=== PATIENT | male | born 1930 ===

== ENCOUNTER 2018-10-04 14:12 | Inpatient (IN) ==
[2018-10-04] MEDS ORDERED: Naloxone 0.4 MG/ML INJ IVP PRN (18:33)
[2018-10-04 19:27] LABS: Basophils % 0.1 %; Eosinophils % 0.2 %; Hematocrit 30.5 % (37.5-50.1); Hemoglobin 8.6 g/dL (12.9-16.9); Immature Granulocytes % 0.9 % (0-4); Lymphocytes # 1.3 K/mcL (0.6-4.6); Lymphocytes % 7.4 %; Mean Corpuscular HGB Conc 28.2 g/dL (31.6-35.5); Mean Corpuscular Hemoglobin 23.6 pg (28.0-33.3); Mean Corpuscular Volume 83.8 fL (83.0-100.0); Mean Platelet Volume 12.3 fL (9.4-12.4); Monocytes # 1.7 K/mcL (0.0-1.3); Monocytes % 9.9 %; Nucleated Red Blood Cells 1.5 /100 WBC (0); Platelet Count 108 K/mcL (140-400); Red Blood Count 3.64 M/mcL (4.19-5.50); Red Cell Distribution Width 18.3 % (11.5-14.5); Segmented Neutrophils % 81.5 %; White Blood Count 17.2 K/mcL (4.3-11.1)
[2018-10-04 19:39] LABS: INR 3.6; Prothrombin Time 40.9 Seconds (9.4-12.1)
[2018-10-04 19:41] LABS: Hypochromasia Present (Not Present); Polychromasia 1+ (Not Present)
[2018-10-04 19:46] LABS: Alanine Aminotransferase 107 Units/L (7-52); Albumin 3.3 g/dL (3.5-5.7); Albumin/Globulin Ratio 1.7 (1.1-2.2); Alkaline Phosphatase 80 Units/L (34-104); Aspartate Amino Transferase 62 Units/L (13-39); BUN/Creatinine Ratio 20 (6-26); Bilirubin,Total 3.4 mg/dL (0.3-1.0); Blood Urea Nitrogen 17 mg/dL (8-23); Calcium 8.4 mg/dL (8.6-10.3); Carbon Dioxide 31 mEq/L (23-29); Chloride 99 mEq/L (98-107); Globulin 1.9 g/dL (2.4-3.5); Glucose 107 mg/dL (70-105); Osmolality,Calculated 292 (280-300); Potassium 3.8 mEq/L (3.5-5.1); Sodium 140 mEq/L (136-145); Total Protein 5.2 g/dL (6.4-8.9); eGFR For African Americans > 60 (> 60); eGFR For Non-African Americans > 60 (> 60)
--- NOTE | 2018-10-05 01:10 | AcuteCare Surgery Consult Note ---
Date of Encounter: 10/05/18 Time of Encounter: 01:07 Assessment and Plan (1) Melena Current Visit: Yes Status: Acute 87M with melena; h/h decreased from last value back in 2018; INR @ 3.9 diet as toleraed reverse INR can begin bowel prep and planning for colonoscopy once INR wnl; will continue to follow History of Present Illness Consult date: 10/05/18 Reason for consult: other (melena) History of present illness: 87M, PMH of HTN, s/p defibrillator poor historian (most of history from the primary team) currently on anticoagulation with INR at 3.9 (reportedly down from 6) with one day history of dark tarry stools. No reports of dizziness, lightheadedness, chest pain nor shortness of breath. The patient has had numerous bleeding episodes over the last 12 years and has 4 colonoscopies over that time. Reports of polyps, but no reports of malignancy. General surgery was consulted for management recommendations Past Med Surg Social Fam HX - Past Medical History Medical history: non-contributory, hypertension, thyroid disease Psychiatric history: no psych history - Social History Smoking Status: Former smoker Smokeless Tobacco Status: No Alcohol use: none Drug use: none - Additional Family History Additional family history: non contributory Medications and Allergies Allergy/AdvReac Type Severity Reaction Status Date / Time No Known Allergies Allergy Verified 05/26/17 11:38 Review of Systems All systems PM: 12 point ROS negative besides HPI findings General Surgery Exam Initial Vital Signs Temp Pulse Resp BP Pulse Ox 97.9 F 99 20 154/81 93 10/04/18 19:33 10/04/18 19:33 10/04/18 19:33 10/04/18 19:33 10/04/18 19:33 - General physical appearance no distress - Eyes PERRL, normal ocular movement - Respiratory normal expansion, normal respiratory effort - Cardiovascular Cardiovascular exam: Present: RRR - Abdomen Abdomen general surgery: Present: soft, non tender - Integumentary Integumentary general surgery: Present: warm and dry, no abnormal pigmentation - Neurologic Present: CN 2-12 grossly intact - Musculoskeletal Present: normal posture - Psychiatric Psychiatric general surgery: Present: appropriate, speech is normal Exam Initial Vital Signs Temp Pulse Resp BP Pulse Ox 97.9 F 99 20 154/81 93 10/04/18 19:33 10/04/18 19:33 10/04/18 19:33 10/04/18 19:33 10/04/18 19:33 Results - Labs 10/04/18 19:04 10/04/18 19:04 Abnormal lab results WBC 17.2 K/mcL (4.3-11.1) H 10/04/18 19:04 RBC 3.64 M/mcL (4.19-5.50) L 10/04/18 19:04 Hgb 8.6 g/dL (12.9-16.9) L 10/04/18 19:04 Hct 30.5 % (37.5-50.1) L 10/04/18 19:04 MCH 23.6 pg (28.0-33.3) L 10/04/18 19:04 MCHC 28.2 g/dL (31.6-35.5) L 10/04/18 19:04 RDW 18.3 % (11.5-14.5) H 10/04/18 19:04 Plt Count 108 K/mcL (140-400) L 10/04/18 19:04 Neutrophils # 14.0 K/mcL (1.6-8.9) H 10/04/18 19:04 Monocytes # 1.7 K/mcL (0.0-1.3) H 10/04/18 19:04 Nucleated RBCs/100 WBC 1.5 /100 WBC (0) H 10/04/18 19:04 Polychromasia 1+ (Not Present) A 10/04/18 19:04 Hypochromasia Present (Not Present) A 10/04/18 19:04 PT 40.9 Seconds (9.4-12.1) H 10/04/18 19:04 Carbon Dioxide 31 mEq/L (23-29) H 10/04/18 19:04 Glucose 107 mg/dL (70-105) H 10/04/18 19:04 Calcium 8.4 mg/dL (8.6-10.3) L 10/04/18 19:04 Total Bilirubin 3.4 mg/dL (0.3-1.0) H 10/04/18 19:04 AST 62 Units/L (13-39) H 10/04/18 19:04 ALT 107 Units/L (7-52) H 10/04/18 19:04 Serum Total Protein 5.2 g/dL (6.4-8.9) L 10/04/18 19:04 Albumin 3.3 g/dL (3.5-5.7) L 10/04/18 19:04 Globulin 1.9 g/dL (2.4-3.5) L 10/04/18 19:04 Diabetes panel 10/04/18 Range/Units 19:04 Sodium 140 (136-145) mEq/L Potassium 3.8 (3.5-5.1) mEq/L Chloride 99 (98-107) mEq/L Carbon Dioxide 31 H (23-29) mEq/L BUN 17 (8-23) mg/dL Creatinine 0.84 (0.70-1.30) mg/dL Glucose 107 H (70-105) mg/dL Calcium 8.4 L (8.6-10.3) mg/dL AST 62 H (13-39) Units/L ALT 107 H (7-52) Units/L Alkaline Phosphatase 80 (34-104) Units/L Albumin 3.3 L (3.5-5.7) g/dL Calcium panel 10/04/18 Range/Units 19:04 Calcium 8.4 L (8.6-10.3) mg/dL Albumin 3.3 L (3.5-5.7) g/dL Pituitary panel 10/04/18 Range/Units 19:04 Sodium 140 (136-145) mEq/L Potassium 3.8 (3.5-5.1) mEq/L Chloride 99 (98-107) mEq/L Carbon Dioxide 31 H (23-29) mEq/L BUN 17 (8-23) mg/dL Creatinine 0.84 (0.70-1.30) mg/dL Glucose 107 H (70-105) mg/dL Calcium 8.4 L (8.6-10.3) mg/dL Adrenal panel 10/04/18 Range/Units 19:04 Sodium 140 (136-145) mEq/L Potassium 3.8 (3.5-5.1) mEq/L Chloride 99 (98-107) mEq/L Carbon Dioxide 31 H (23-29) mEq/L BUN 17 (8-23) mg/dL Creatinine 0.84 (0.70-1.30) mg/dL Glucose 107 H (70-105) mg/dL Calcium 8.4 L (8.6-10.3) mg/dL Total Bilirubin 3.4 H (0.3-1.0) mg/dL AST 62 H (13-39) Units/L ALT 107 H (7-52) Units/L Alkaline Phosphatase 80 (34-104) Units/L Albumin 3.3 L (3.5-5.7) g/dL All other labs normal. Consult Discharge Plan - Plan Referrals: Jyoti Greenfield CNP [Primary Care Provider] -
[2018-10-05] MEDS ORDERED: Ondansetron 4 MG/2 ML VIAL IVP PRN (01:34)
[2018-10-05] MEDS ORDERED: traMADol 50 MG TABLET PO PRN (01:34)
[2018-10-05] MEDS ORDERED: Acetaminophen 325 MG TABLET PO PRN (01:34)
--- NOTE | 2018-10-05 02:39 | Internal Med History&Physical ---
Date of Encounter: 10/05/18 Time of Encounter: 00:45 Internal Medicine - H&P: HPI Chief complaint: Melena Admitted From: Hospital to Hospital Transfer Plans for Post Hospital Care: Home History of present illness: Mr. Hummel is a 87 year old male w/PMH of HTN, thyroid disease, atrial fibrillation on Xarelto, CHF, Pacemaker/AICD, and depression presents from [facility] w/CC of melena for the past several days. Pt. states that he has had black stools intermittently but no jyoti bleeding. Pts. Hgb on admiss ion 8.6. F/u Hgb at 02:08 was 8.0. Patient's current INR 3.6. Patient has 12 year hx of GI bleeding episodes and has 4 colonoscopies in as many years. Previous colonoscopies showed presence of polyps but no malignancy. No aggravating or alleviating factors. Patient reports weakness, SOB w/exertion, and falls but denies recent illness, fever, chills, nausea, vomiting, headache, changes in vision, chest pain, abdominal pain, dizziness, lightheadedness, diarrhea, constipation, numbness, tingling, pre-syncope, or syncope. Past Med Surg Social Fam HX - Past Medical History Source: patient, old records reviewed, obtained from family Medical history: atrial fibrillation, CHF, GI bleed, hypertension, thyroid disease Psychiatric history: depression - Past Surgical History Surgical History: pacemaker/AICD - Social History Smoking Status: Former smoker Smokeless Tobacco Status: No Alcohol use: none Drug use: none Current living situation: Home, With Family Activity Level: Independent ambulation Recent Out of Country Travel Within the Last 8 Weeks: No Exposure or Possible Exposure to Illness During Travel: No - Family History Father Race: Family Member Ethnicity: Non- Living Status: Age at : 80 Cause of : Alcoholism Hx Family Psychosocial Disorders: Yes (Alcoholism) Mother Race: Family Member Ethnicity: Non- Living Status: Age at : 75 Cause of : Alzheimer's Hx Family Cancer: Yes (Colon) Hx Family Neurologic Disorders: Yes (Alzheimer's) Brother Race: Family Member Ethnicity: Non- Living Status: Age at : 40 Cause of : Alcoholism Hx Family Psychosocial Disorders: Yes (Alcoholism) Sister Race: Family Member Ethnicity: Non- Living Status: Age at : 84 Cause of : Alzheimer's Hx Family Neurologic Disorders: Yes (Alzheimer's) Internal Medicine - H&P: Meds Citalopram Hydrobromide [Citalopram HBr] 40 mg PO DAILY 10/05/18 [History] Furosemide [Lasix] 20 mg PO BID 10/05/18 [History] Levothyroxine [Synthroid] 125 mcg PO DAILY 10/05/18 [History] Lisinopril [Zestril] 10 mg PO DAILY 10/05/18 [History] Loperamide HCl [Anti-Diarrheal] 1 tab PO Q6HR PRN 10/05/18 [History] Metoprolol Succinate [Toprol Xl] 75 mg PO DAILY 10/05/18 [History] Potassium Chloride [K-Tab ER] 20 meq PO DAILY 10/05/18 [History] Rivaroxaban [Xarelto] 20 mg PO DAILY 10/05/18 [History] Tamsulosin HCl [Flomax] 0.4 mg PO DAILY 10/05/18 [History] hydrOXYzine HCl [Hydroxyzine HCl] 50 mg PO DAILY 10/05/18 [History] Allergy/AdvReac Type Severity Reaction Status Date / Time No Known Allergies Allergy Verified 05/26/17 11:38 All Systems PM: A 10-system review of systems was performed and is negative for pertinent findin gs except as documented above in the HPI. - Constitutional Constitutional: as per HPI, fatigue, weakness, no chills, no fever(s), no night sweats - EENT Eyes: no change in vision, no discharge, no pain, no photophobia Ears: no ear discharge, no ear pain, no tinnitus Nose, mouth and throat: no dysphagia, no nasal discharge, no neck pain, no sore throat - Breasts Breasts: as per HPI - Cardiovascular Cardiovascular ROS IM: as per HPI, dyspnea on exertion, no chest pain, no diaphoresis, no dyspnea, no lightheadedness, no palpitations, no syncope - Respiratory Respiratory: as per HPI, dyspnea on exertion, no cough, no dyspnea, no wheezing, no excessive phlegm production - Gastrointestinal Gastrointestinal: as per HPI, melena, no abdominal pain, no diarrhea, no hematemesis, no hematochezia, no nausea, no vomiting - Genitourinary Genitourinary ROS male: as per HPI, urinary hesitancy - Musculoskeletal Musculoskeletal ROS IM: no numbness, no tingling - Integumentary Integumentary IM: no rash, no unusual bruising - Neurological Neurological ROS: as per HPI, weakness, no confusion, no convulsions, no focal weakness, no numbness, no tingling, no tremor(s) - Psychiatric Psychiatric: as per HPI, depression - Endocrine Endocrine IM: as per HPI - Hematologic/Lymphatic Hematologic/Lymphatic: no easy bruising - Allergic/Immunologic Allergic/Immunologic: as per HPI - Constitutional Vitals: Temp Pulse Resp BP Pulse Ox 98 F 99 20 109/63 95 10/04/18 23:52 10/04/18 23:52 10/04/18 23:52 10/04/18 23:52 10/04/18 23:52 General appearance: Present: cooperative, A&O X 3, pleasant, no acute distress, obese, answers questions appropriately Exam: Patient examined at bedside. Patient reports intermittent melena over the past several days but denies jyoti blood presence. Pt. denies any other sx or complaints on exam. VS: 98.0F temp, HR 99, RR 20, BP 109/63, SPO2 95% on 2 L via nasal cannula. - Head Head exam: Present: atraumatic, normocephalic - Eye Eye exam: Present: PERRL, conjuntiva pink, sclera anicteric Pupils: Present: PERRL - ENT ENT exam: Present: normal exam - Neck Neck exam general surgery: Present: normal inspection, supple, trachea midline. Absent: lymphadenopathy - Respiratory Respiratory exam: Present: CTAB. Absent: accessory muscle use, rales, rhonchi, wheezes - Cardiovascular Cardiovascular exam: Present: irregular rhythm (Afib w/RVR) - GI/Abdominal GI/Abdominal exam: Present: normal bowel sounds, soft, no peritoneal signs. Absent: distended, tenderness - Rectal Rectal exam: Present: deferred - Additional comments: exam deferred. - Extremities Exam Extremities exam: Present: pedal edema, warm, radial pulses palpable and symmetr ical. Absent: calf tenderness, cyanotic - Back Exam Back exam: Present: normal inspection - Neurological Exam Neurological exam: Present: alert, CN II-XII intact, oriented X3, no focal deficits. Absent: pronater drift, facial droop, speech deficit - Psychiatric Psychiatric exam: Present: normal affect, normal mood - Skin Skin exam: Present: dry, intact Internal Med - H&P Results - Labs CBC & Chem 7: 10/05/18 02:08 10/05/18 02:08 Labs: Short CBC 10/04/18 Range/Units 19:04 WBC 17.2 H (4.3-11.1) K/mcL Hgb 8.6 L (12.9-16.9) g/dL Hct 30.5 L (37.5-50.1) % Plt Count 108 L (140-400) K/mcL Neutrophils # 14.0 H (1.6-8.9) K/mcL BMP 10/04/18 19:04 Sodium 140 Potassium 3.8 Chloride 99 Carbon Dioxide 31 H BUN 17 Creatinine 0.84 Glucose 107 H Calcium 8.4 L Liver Function 10/04/18 Range/Units 19:04 Total Bilirubin 3.4 H (0.3-1.0) mg/dL AST 62 H (13-39) Units/L ALT 107 H (7-52) Units/L Alkaline Phosphatase 80 (34-104) Units/L Albumin 3.3 L (3.5-5.7) g/dL - EKG Data Prior EKG available for review: no EKG comments: 10/05/18 04:22 EKG dated 10/05/18 shows atrial fibrillation with rapid ventricular response and minimal ST depression. Abnormal QRST angle. - Assessment and Plan (1) Melena Current Visit: Yes Status: Acute Assessment and plan: Acute on chronic melena for the past several days. Pt. states that he has had black stools intermittently but no jyoti bleeding. Pts. Hgb on admission 8.6. F/u Hgb at 02:08 was 8.0. Patient's current INR 3.6. Patient has 12 year hx of GI bleeding episodes and has 4 colonoscopies in as many years. Previous colonoscopies showed presence of polyps but no malignancy. Hgb 8.6 then 8.0 on admission. Patient typed and screened with results showing O+ with negative antibody screen. H/Hs Q4HR ordered. Will transfuse as necessary if Hgb continues to drop. IVP Protonix 40 mg BID ordered. Surgery consulted and pt. was discussed w/Dr. Roblero who plans on colonoscopy when INR is therapeutic. One unit of FFP ordered d/t INR being 3.6 (therapeutic range is 2.0 to 3.5 on antico agulation). As always, I appreciate the consult and recommendations. Patient is high risk for further morbidity and complications d/t current GI bleeding of unknown source, hx of GI bleeds, current drops in Hgb, hx of atrial fibrillation on anticoagulation, and risk factors. Observation. (2) Leukocytosis Current Visit: Yes Status: Acute Assessment and plan: Acute leukocytosis w/WBC of 17.2, then 16.3 on admission. No identifiable infection source and pt. denies recent illness, fever, chills, or other sx. Possibly reactive. Monitor f/u labs and pt. for signs of infection. Qualifiers: Leukocytosis type: unspecified Qualified Code(s): D72.829 - Elevated white blood cell count, unspecified (3) Elevated liver enzymes Current Visit: Yes Status: Acute Assessment and plan: Acutely elevated liver enzymes. AST 62 on admission. ALT 107. Will avoid acetaminophen products and monitor f/u labs. (4) Hypocalcemia Current Visit: Yes Status: Acute Assessment and plan: Acute hypocalcemia w/calcium level of 8.1. PO calcium carbonate ordered. Monitor f/u labs. Cardiac monitoring. (5) CHF (congestive heart failure) Current Visit: Yes Status: Chronic Assessment and plan: Hx of chronic CHF. No recent cardiac w/u. Echocardiogram ordered. Bilateral pedal edema on admission. Continuous cardiac telemetry. Supplemental O2 w/titration and SpO2 monitoring. Continue pts. PO lasix. Monitor I&O. Monitor fluid intake closely. Qualifiers: Heart failure type: unspecified Heart failure chronicity: chronic Qualified Code(s): I50.9 - Heart failure, unspecified (6) Atrial fibrillation Current Visit: Yes Status: Chronic Assessment and plan: Hx of chronic Atrial fibrillation on Xarelto. Recommendation from Pharmacy is to be off Xarelto for 24 hours prior to procedure. Pt. reports he last took his Xarelto on . EKG on admission showed Afib w/RVR w/HR of 102. D/t pts. hypotension, 2.5 mg IVP Metoprolol given. HR bouncing 80s to low 100s. Continuous cardiac telemetry. Echocardiogram ordered. Qualifiers: Atrial fibrillation type: chronic Qualified Code(s): I48.2 - Chronic atrial fibrillation (7) HTN (hypertension) Current Visit: Yes Status: Chronic Assessment and plan: Hx of chronic HTN. Monitor pt. and VS. Pt. currently hypotensive. Will continue pts. lisinopril and Toprol-XL when no longer hypotensive. Qualifiers: Hypertension type: essential hypertension Qualified Code(s): I10 - Essential (primary) hypertension (8) Thyroid disease Current Visit: Yes Status: Chronic Assessment and plan: Hx of chronic thyroid disease. TSH 0.111 on admission. Continue pts. Synthroid. Cardiac monitoring. (9) DVT prophylaxis Current Visit: Yes Status: Acute Assessment and plan: Bilateral SCDs on LEs for DVT prophylaxis d/t current melena and drop in Hgb. - Time Spent With Patient Total time spent is greater than 50% in coordination of care (as documented) at patient's floor/unit and/or counseling patient: Greater than 35 minutes
[2018-10-05 02:41] LABS: Basophils % 0.1 %; Eosinophils % 0.4 %; Red Cell Distribution Width 18.1 % (11.5-14.5); White Blood Count 16.3 K/mcL (4.3-11.1)
[2018-10-05 02:43] LABS: Eosinophils # 0.1 K/mcL (0.0-0.6); Hematocrit 28.5 % (37.5-50.1); Lymphocytes # 1.2 K/mcL (0.6-4.6); Lymphocytes % 7.4 %; Mean Corpuscular HGB Conc 28.1 g/dL (31.6-35.5); Mean Corpuscular Hemoglobin 23.5 pg (28.0-33.3); Mean Corpuscular Volume 83.6 fL (83.0-100.0); Mean Platelet Volume 11.5 fL (9.4-12.4); Monocytes # 1.8 K/mcL (0.0-1.3); Neutrophils # 13.1 K/mcL (1.6-8.9); Nucleated Red Blood Cells 1.5 /100 WBC (0); Red Blood Count 3.41 M/mcL (4.19-5.50); Segmented Neutrophils % 80.1 %
[2018-10-05 02:46] LABS: Platelet Count 87 K/mcL (140-400)
[2018-10-05 02:59] LABS: Chol/HDL Ratio 3.2 (0-4.9); Magnesium 2.2 mg/dL (1.6-2.6)
[2018-10-05 03:00] LABS: % Iron Saturation 39 % (20-55); Alanine Aminotransferase 90 Units/L (7-52); Albumin 3.1 g/dL (3.5-5.7); Albumin/Globulin Ratio 1.9 (1.1-2.2); Alkaline Phosphatase 70 Units/L (34-104); Aspartate Amino Transferase 47 Units/L (13-39); BUN/Creatinine Ratio 22 (6-26); Bilirubin,Total 3.3 mg/dL (0.3-1.0); Blood Urea Nitrogen 17 mg/dL (8-23); Calcium 8.1 mg/dL (8.6-10.3); Carbon Dioxide 29 mEq/L (23-29); Chloride 103 mEq/L (98-107); Globulin 1.6 g/dL (2.4-3.5); Glucose 87 mg/dL (70-105); Iron 149 mcg/dL (65-175); Osmolality,Calculated 291 (280-300); Potassium 3.7 mEq/L (3.5-5.1); Sodium 140 mEq/L (136-145); Total Protein 4.7 g/dL (6.4-8.9); Transferrin 275 mg/dL (203-362); eGFR For African Americans > 60 (> 60); eGFR For Non-African Americans > 60 (> 60)
[2018-10-05] MEDS ORDERED: *HR* Metoprolol 5 MG/5 ML VIAL IVP ONE (03:08)
[2018-10-05 03:15] LABS: Thyroid Stimulating Hormone 0.111 mcIU/mL (0.340-5.600)
[2018-10-05 03:57] LABS: Hypochromasia Present (Not Present); Platelet Estimate Slight Decrease (Normal); Polychromasia 1+ (Not Present)
[2018-10-05] MEDS ORDERED: 0.9 % Sodium Chloride 500 ML ONE (04:13)
[2018-10-05] MEDS: Pantoprazole 40 MG VIAL IVP SCH ×2 (06:34→16:46)
[2018-10-05] MEDS ORDERED: hydrOXYzine pamoate 25 MG CAPSULE PO SCH (09:00)
[2018-10-05] MEDS ORDERED: Furosemide 20 MG TABLET PO SCH (09:00)
--- NOTE | 2018-10-05 09:21 | AcuteCareSurgery Progress Note ---
<Radha Scruggs Dave - Last Filed: 10/05/18 09:19> Date of Encounter: 10/05/18 Time of Encounter: 07:30 - Assessment and Plan (1) Melena Current Visit: Yes Status: Acute Noted he has been transfused one unit PRBC per primary team. Hgb 8.0 today. Coags remain pending for today. If adequately reversed and INR is stable, will begin bowel prep and plans for EGD and c-scope the following day Subjective Patient reports: no new complaints, voiding w/o difficulty, bowel movement, blood in stool, other (feels dizzy) Objective Vital Signs - Last 8 Hours Temp Pulse Resp BP Pulse Ox 10/05/18 08:04 98.1 F 120 16 125/77 91 10/05/18 06:52 97.9 F 108 16 125/75 10/05/18 04:53 97.9 F 83 18 108/64 10/05/18 04:38 98.1 F 86 16 124/65 97 10/05/18 04:17 98.1 F 86 17 124/65 96 Intake and Output 10/04/18 10/05/18 10/05/18 23:59 07:59 15:59 Intake Total 0 / 0 250 / 250 Balance 0 / 0 250 / 250 Intake: Oral 0 / 0 Blood Product 250 / 250 Plasma Unit [id number] 250 / 250 Other: Weight 89.2 kg Blood Glucose* 97 - General physical appearance no distress, other (pale; ensteady on feet) - ENT atraumatic, normocephalic - Neck Neck exam: trachea midline - Cardiovascular Cardiovascular exam: Present: RRR - Abdomen Abdomen: Present: bowel sounds present, soft, non tender - Integumentary other (pale) - Musculoskeletal other (unsteady) - Psychiatric oriented to time, oriented to person, oriented to place - Labs 10/05/18 02:08 10/05/18 02:08 Diabetes panel 10/04/18 10/05/18 10/05/18 Range/Units 19:04 02:08 02:08 Sodium 140 140 (136-145) mEq/L Potassium 3.8 3.7 (3.5-5.1) mEq/L Chloride 99 103 (98-107) mEq/L Carbon Dioxide 31 H 29 (23-29) mEq/L BUN 17 17 (8-23) mg/dL Creatinine 0.84 0.78 (0.70-1.30) mg/dL Glucose 107 H 87 (70-105) mg/dL Calcium 8.4 L 8.1 L (8.6-10.3) mg/dL AST 62 H 47 H (13-39) Units/L ALT 107 H 90 H (7-52) Units/L Alkaline Phosphatase 80 70 (34-104) Units/L Albumin 3.3 L 3.1 L (3.5-5.7) g/dL Triglycerides 57 (< 150) mg/dL HDL Cholesterol 15 L (40-59) mg/dL Thyroid panel 10/05/18 Range/Units 02:08 TSH 0.111 L (0.340-5.600) mcIU/mL Calcium panel 10/04/18 10/05/18 Range/Units 19:04 02:08 Calcium 8.4 L 8.1 L (8.6-10.3) mg/dL Albumin 3.3 L 3.1 L (3.5-5.7) g/dL Pituitary panel 10/04/18 10/05/18 10/05/18 Range/Units 19:04 02:08 02:08 Sodium 140 140 (136-145) mEq/L Potassium 3.8 3.7 (3.5-5.1) mEq/L Chloride 99 103 (98-107) mEq/L Carbon Dioxide 31 H 29 (23-29) mEq/L BUN 17 17 (8-23) mg/dL Creatinine 0.84 0.78 (0.70-1.30) mg/dL Glucose 107 H 87 (70-105) mg/dL Calcium 8.4 L 8.1 L (8.6-10.3) mg/dL TSH 0.111 L (0.340-5.600) mcIU/mL Adrenal panel 10/04/18 10/05/18 Range/Units 19:04 02:08 Sodium 140 140 (136-145) mEq/L Potassium 3.8 3.7 (3.5-5.1) mEq/L Chloride 99 103 (98-107) mEq/L Carbon Dioxide 31 H 29 (23-29) mEq/L BUN 17 17 (8-23) mg/dL Creatinine 0.84 0.78 (0.70-1.30) mg/dL Glucose 107 H 87 (70-105) mg/dL Calcium 8.4 L 8.1 L (8.6-10.3) mg/dL Total Bilirubin 3.4 H 3.3 H (0.3-1.0) mg/dL AST 62 H 47 H (13-39) Units/L ALT 107 H 90 H (7-52) Units/L Alkaline Phosphatase 80 70 (34-104) Units/L Albumin 3.3 L 3.1 L (3.5-5.7) g/dL Consult Discharge Plan - Plan Referrals: Jyoti Greenfield, GRAPHICS SPECIALIST [Primary Care Provider] - <BlasAmado T - Last Filed: 10/05/18 12:43> Date of Encounter: 10/05/18 Subjective Narrative: The patient is seen and evaluated on morning rounds with the acute care surgery team. Objective Vital Signs - Last 8 Hours Temp Pulse Resp BP Pulse Ox 10/05/18 12:18 98.5 F 89 20 124/75 97 10/05/18 08:04 98.1 F 120 16 125/77 91 10/05/18 06:52 97.9 F 108 16 125/75 10/05/18 04:53 97.9 F 83 18 108/64 Intake and Output 10/04/18 10/05/18 10/05/18 23:59 07:59 15:59 Intake Total 0 / 0 250 / 250 Balance 0 / 0 250 / 250 Intake: Oral 0 / 0 Blood Product 250 / 250 Plasma Unit [id number] 250 / 250 Other: Weight 89.2 kg Blood Glucose* 97 108 - Labs 10/05/18 10:54 10/05/18 02:08 Diabetes panel 10/04/18 10/05/18 10/05/18 Range/Units 19:04 02:08 02:08 Sodium 140 140 (136-145) mEq/L Potassium 3.8 3.7 (3.5-5.1) mEq/L Chloride 99 103 (98-107) mEq/L Carbon Dioxide 31 H 29 (23-29) mEq/L BUN 17 17 (8-23) mg/dL Creatinine 0.84 0.78 (0.70-1.30) mg/dL Glucose 107 H 87 (70-105) mg/dL Calcium 8.4 L 8.1 L (8.6-10.3) mg/dL AST 62 H 47 H (13-39) Units/L ALT 107 H 90 H (7-52) Units/L Alkaline Phosphatase 80 70 (34-104) Units/L Albumin 3.3 L 3.1 L (3.5-5.7) g/dL Triglycerides 57 (< 150) mg/dL HDL Cholesterol 15 L (40-59) mg/dL Thyroid panel 10/05/18 Range/Units 02:08 TSH 0.111 L (0.340-5.600) mcIU/mL Calcium panel 10/04/18 10/05/18 Range/Units 19:04 02:08 Calcium 8.4 L 8.1 L (8.6-10.3) mg/dL Albumin 3.3 L 3.1 L (3.5-5.7) g/dL Pituitary panel 10/04/18 10/05/18 10/05/18 Range/Units 19:04 02:08 02:08 Sodium 140 140 (136-145) mEq/L Potassium 3.8 3.7 (3.5-5.1) mEq/L Chloride 99 103 (98-107) mEq/L Carbon Dioxide 31 H 29 (23-29) mEq/L BUN 17 17 (8-23) mg/dL Creatinine 0.84 0.78 (0.70-1.30) mg/dL Glucose 107 H 87 (70-105) mg/dL Calcium 8.4 L 8.1 L (8.6-10.3) mg/dL TSH 0.111 L (0.340-5.600) mcIU/mL Adrenal panel 10/04/18 10/05/18 Range/Units 19:04 02:08 Sodium 140 140 (136-145) mEq/L Potassium 3.8 3.7 (3.5-5.1) mEq/L Chloride 99 103 (98-107) mEq/L Carbon Dioxide 31 H 29 (23-29) mEq/L BUN 17 17 (8-23) mg/dL Creatinine 0.84 0.78 (0.70-1.30) mg/dL Glucose 107 H 87 (70-105) mg/dL Calcium 8.4 L 8.1 L (8.6-10.3) mg/dL Total Bilirubin 3.4 H 3.3 H (0.3-1.0) mg/dL AST 62 H 47 H (13-39) Units/L ALT 107 H 90 H (7-52) Units/L Alkaline Phosphatase 80 70 (34-104) Units/L Albumin 3.3 L 3.1 L (3.5-5.7) g/dL - Attending Attestation I have personally performed a face to face evaluation on this patient. I have reviewed and agree with the care plan. History and Exam by me shows: The patient is seen and evaluated on morning rounds with the acute care surgery team. The patient continues to have correction of his coagulopathy. Once we confirm that the INR is normalized, we will proceed with bowel prep followed by EGD and colonoscopy Amado Odonnell MD FACS
[2018-10-05 11:16] LABS: Hematocrit 30.6 % (37.5-50.1); Hemoglobin 8.6 g/dL (12.9-16.9)
[2018-10-05 11:26] LABS: INR 2.4; Prothrombin Time 26.9 Seconds (9.4-12.1)
[2018-10-05 11:28] LABS: Activated Partial Thrombo Time 31.6 Seconds (26.0-36.0)
[2018-10-05] MEDS: Furosemide 20 MG TABLET PO SCH ×2 (11:43→16:46)
--- NOTE | 2018-10-05 12:09 | Event Note ---
Date of Encounter: 10/05/18 Time of Encounter: 12:07 Patient is a 57-year-old male with past medical history of hypertension, CHF, A. fib on Xarelto, and thyroid disease, and depression presented with the complaint of melena to the emergency room yesterday. Patient initially presented to [facility] where he received 1 unit of packed RBC. Upon presentation to the [place] emergency room and found to have elevated white count. Patient also had hemoglobin of 8.6 which dropped down to 8. Patient's INR was 3.5. Patient received 1 unit of fresh frozen plasma. Patient's repeat hemoglobin was 8.6. Patient's repeat white count was trending down. Patient does not have any suspicious infectious etiology at this time. Chest x-ray was within normal limit. Surgery was consulted. Who is planning to do an EGD and colonoscopy if INR reversal achieved. We will continue to monitor patient. As
[2018-10-05 12:10] LABS: Bilirubin,Urine Small (Negative); Blood,Urine Negative (Negative); Clarity,Urine Clear (Clear); Color,Urine Dark Yellow (Yellow); Glucose,Urine (UA) Normal (Normal); Ketones,Urine 15 mg/dL (Negative); Leukocyte Esterase,Urine Small (Negative); Nitrite,Urine Negative (Negative); PH,Urine 5.5 pH Units (5.0-8.0); Protein,Urine Trace mg/dL (Neg-Trace); Specific Gravity,Urine 1.024 (1.010-1.025)
[2018-10-05 12:12] LABS: Bacteria,Urine None Seen per hpf (None-Few); Hyaline Casts,Urine None Seen per lpf (None-Few); RBC,Urine 0-3 per hpf (0-3); Squamous Epithelial Cell,Urine Moderate per lpf (None-Few); WBC,Urine 0-3 per hpf (0-3)
--- NOTE | 2018-10-05 13:50 | Electrocardiograph Report ---
[place] [id number] Test Date: 2018-10-05 Pat Name: Nabil Hummel Department: 112 Room: [facility] Gender: M Saw Handle Assembler: : 1930 Requested By: Faraz Ernandez Order Number: [id number] Reading MD: Naeem Castle Measurements Intervals [place] Rate: 102 P: AR: 0 QRS: -5 QRSD: 95 T: 211 QT: 360 QTc: 419 Interpretive Statements ATRIAL FIBRILLATION WITH RAPID VENTRICULAR RESPONSE MINIMAL ST DEPRESSION ABNORMAL QRS-T ANGLE Electronically Signed On 10-05-2018 13:49:07 EDT by Naeem Castle
[2018-10-05 17:38] LABS: Hematocrit 30.4 % (37.5-50.1); Hemoglobin 8.5 g/dL (12.9-16.9)
[2018-10-05] MEDS: hydrOXYzine pamoate 25 MG CAPSULE PO SCH (21:07)
[2018-10-06 00:46] LABS: Hematocrit 27.4 % (37.5-50.1); Hemoglobin 7.8 g/dL (12.9-16.9)
[2018-10-06 03:22] LABS: Basophils % 0.1 %; Hemoglobin 7.2 g/dL (12.9-16.9); Immature Granulocytes % 0.7 % (0-4); Nucleated Red Blood Cells 0.6 /100 WBC (0)
[2018-10-06 03:23] LABS: Eosinophils # 0.1 K/mcL (0.0-0.6); Eosinophils % 0.4 %; Hematocrit 25.4 % (37.5-50.1); Lymphocytes # 0.9 K/mcL (0.6-4.6); Lymphocytes % 7.3 %; Mean Corpuscular HGB Conc 28.3 g/dL (31.6-35.5); Mean Corpuscular Hemoglobin 24.1 pg (28.0-33.3); Mean Corpuscular Volume 84.9 fL (83.0-100.0); Mean Platelet Volume 11.5 fL (9.4-12.4); Monocytes # 1.8 K/mcL (0.0-1.3); Monocytes % 14.3 %; Neutrophils # 9.9 K/mcL (1.6-8.9); Red Blood Count 2.99 M/mcL (4.19-5.50); Red Cell Distribution Width 18.6 % (11.5-14.5); Segmented Neutrophils % 77.2 %; White Blood Count 12.8 K/mcL (4.3-11.1)
[2018-10-06 03:26] LABS: Platelet Count 82 K/mcL (140-400)
[2018-10-06 03:29] LABS: INR 1.8; Prothrombin Time 20.2 Seconds (9.4-12.1)
[2018-10-06 03:39] LABS: BUN/Creatinine Ratio 16 (6-26); Blood Urea Nitrogen 12 mg/dL (8-23); Calcium 7.9 mg/dL (8.6-10.3); Carbon Dioxide 32 mEq/L (23-29); Chloride 102 mEq/L (98-107); Glucose 113 mg/dL (70-105); Osmolality,Calculated 291 (280-300); Potassium 3.4 mEq/L (3.5-5.1); Sodium 140 mEq/L (136-145); eGFR For African Americans > 60 (> 60); eGFR For Non-African Americans > 60 (> 60)
[2018-10-06 03:48] LABS: Anisocytosis 1+ (Not Present); Hypochromasia Present (Not Present); Platelet Estimate Decreased (Normal); Polychromasia 1+ (Not Present)
--- NOTE | 2018-10-06 05:43 | Event Note ---
Date of Encounter: 10/06/18 Time of Encounter: 05:15 Alerted by pts. nurse Mendes RN of pts. a.m. labs. Hgb now 7.2, down from 7.8. Platelets are now 82, down from 87. K is 3.4. 2 units of PRBCs ordered for transfusion as pt. is in need of colonoscopy for GI bleeding. 20 mEq potassium changed to 40 mEq daily. Nurse reports that the pt. has been agitated and confused overnight. I saw the patient earlier when his [id number] was present and he appeared the same as when I admitted him. Nurse instructed to continue monitoring the pt. very closely and alert me immediately of any adverse changes.
[2018-10-06] MEDS: Pantoprazole 40 MG VIAL IVP SCH ×2 (06:41→18:45)
[2018-10-06] MEDS: Furosemide 20 MG TABLET PO SCH ×2 (07:31→18:45)
[2018-10-06] MEDS: Metoprolol XL (24 HR) Succ 50 MG TAB.ER.24H PO SCH (07:31)
--- NOTE | 2018-10-06 10:37 | AcuteCareSurgery Progress Note ---
Date of Encounter: 10/06/18 Time of Encounter: 10:35 - Assessment and Plan (1) Melena Current Visit: Yes Status: Acute 87M with LGIB, continued drop in h/h; INR appropriate for procedure; CLD, miralax bowel prep today NPO at midnight plan for EGD colonoscopy on 10/07 Subjective Patient reports: no new complaints, feels better, afebrile Objective Vital Signs - Last 8 Hours Temp Pulse Resp BP Pulse Ox 10/06/18 07:03 98.6 F 69 16 114/71 93 10/06/18 03:38 97.9 F 78 18 108/47 94 Intake and Output 10/05/18 10/06/18 10/06/18 23:59 07:59 15:59 Intake Total 720 / 970 0 / 0 Balance 720 / 895 0 / 0 Intake: Oral 720 / 720 0 / 0 Other: Stool Size Moderate Stool Consistency formed Stool Characteristics Pasty Stool Color Brown # Voids 1 1 # Bowel Movements 1 Blood Glucose* 95 118 - General physical appearance no distress - Respiratory normal expansion, normal respiratory effort - Cardiovascular Cardiovascular exam: Present: RRR - Abdomen Abdomen: Present: soft, non tender - Neurologic CN 2-12 grossly intact - Labs 10/06/18 03:08 10/06/18 03:08 Diabetes panel 10/06/18 Range/Units 03:08 Sodium 140 (136-145) mEq/L Potassium 3.4 L (3.5-5.1) mEq/L Chloride 102 (98-107) mEq/L Carbon Dioxide 32 H (23-29) mEq/L BUN 12 (8-23) mg/dL Creatinine 0.76 (0.70-1.30) mg/dL Glucose 113 H (70-105) mg/dL Calcium 7.9 L (8.6-10.3) mg/dL Calcium panel 10/06/18 Range/Units 03:08 Calcium 7.9 L (8.6-10.3) mg/dL Pituitary panel 10/06/18 Range/Units 03:08 Sodium 140 (136-145) mEq/L Potassium 3.4 L (3.5-5.1) mEq/L Chloride 102 (98-107) mEq/L Carbon Dioxide 32 H (23-29) mEq/L BUN 12 (8-23) mg/dL Creatinine 0.76 (0.70-1.30) mg/dL Glucose 113 H (70-105) mg/dL Calcium 7.9 L (8.6-10.3) mg/dL Adrenal panel 10/06/18 Range/Units 03:08 Sodium 140 (136-145) mEq/L Potassium 3.4 L (3.5-5.1) mEq/L Chloride 102 (98-107) mEq/L Carbon Dioxide 32 H (23-29) mEq/L BUN 12 (8-23) mg/dL Creatinine 0.76 (0.70-1.30) mg/dL Glucose 113 H (70-105) mg/dL Calcium 7.9 L (8.6-10.3) mg/dL Consult Discharge Plan - Plan Referrals: Jyoti Greenfield, MANAGER TRAFFIC [Primary Care Provider] -
[2018-10-06] MEDS ORDERED: 0.9 % Sodium Chloride 250 ML ONE ×2 (11:08→14:57)
[2018-10-06] MEDS ORDERED: *HR* LORazepam 2 MG/ML VIAL IVP ONE (12:45)
[2018-10-06] MEDS ORDERED: *HR* LORazepam 2 MG/ML VIAL ONE (12:45)
--- NOTE | 2018-10-06 12:55 | Event Note ---
Date of Encounter: 10/06/18 Time of Encounter: 12:53 Patient was examined at the bedside. Patient was examined by cup paced regarding patient's aggressive behavior and agitation. Per pt's nurse he was fighting everyone pulled his IV out. When I went to examine the patient he was sleeping. However he was agitated and his sleep fighting everyone. Ativan 1 mg IV push ordered. 4 point soft restraints ordered. We will DC restrained once patient calm down after Ativan effect. Advsied nurse to continue to monitor patient.
--- NOTE | 2018-10-06 13:29 | Internal Med Progress Note ---
Hospitalist Progress Note - Encounter Date of Encounter: 10/06/18 Time of Encounter: 13:27 - Subjective Interval History: She will seen and examined at bedside. - Exam Vitals: Temp Pulse Resp BP Pulse Ox 97.6 F 110 16 136/54 93 10/06/18 12:56 10/06/18 12:56 10/06/18 12:56 10/06/18 12:56 10/06/18 12:56 Exam: General: A & O 3, In no acute distress. Somnolent HENNT: PERRLA. Head atraumatic and makes supple CVS S1 and S2 regular, no murmur RS: Clear to air entry bilaterally, no wheeze, no crackles Abdomen: Soft and nontender. Bowel sounds normal 4 Extremities: No cyanosis, clubbing, and edema Neurology: Cranial 2 through 12 normal. Motor strength 5/5 bilaterally. Sensation intact - Assessment and Plan (1) Melena Current Visit: Yes Status: Acute Assessment and Plan: Patient was admitted for melena. Patient is currently on Protonix. Hemoglobin is continuing to drop down to 7.2 today. 2 units of packed RBC ordered. INR today is 2. Surgery is on consult. Plan is to do EGD and colonoscopy tomorrow. (2) Atrial fibrillation Current Visit: Yes Status: Chronic Assessment and Plan: Hx of chronic Atrial fibrillation on Xarelto. Recommendation from Pharmacy is to be off Xarelto for 24 hours prior to procedure. Will start Xarelto after procedure (3) CHF (congestive heart failure) Current Visit: Yes Status: Chronic Assessment and Plan: Echocardiogram ordered. Mild diastolic dysfunction. Ejection fraction was 65%. We will continue to monitor I's and O's and daily weight. (4) HTN (hypertension) Current Visit: Yes Status: Chronic Assessment and Plan: Continue pts. lisinopril and Toprol-XL (5) Thyroid disease Current Visit: Yes Status: Chronic Assessment and Plan: Continue pts. Synthroid. Cardiac monitoring. (6) Leukocytosis Current Visit: Yes Status: Acute Assessment and Plan: Blood cell count is trending down. We will continue to monitor. No infectious etiology at this time. (7) Hypocalcemia Current Visit: Yes Status: Acute Assessment and Plan: Continue calcium carbonate ordered. Monitor f/u labs. Cardiac monitoring. (8) DVT prophylaxis Current Visit: Yes Status: Acute Assessment and Plan: Bilateral SCDs on LEs for DVT prophylaxis d/t current melena and drop in Hgb. - Time Spent with Patient Total time spent is greater than 50% in coordination of care (as documented) at patient's floor/unit and/or counseling patient: Internal Medicine: Result - Labs CBC & Chem 7: 10/06/18 03:08 10/06/18 03:08 Labs: Short CBC 10/05/18 10/05/18 10/06/18 Range/Units 17:09 23:55 03:08 WBC 12.8 H (4.3-11.1) K/mcL Hgb 8.5 L 7.8 L 7.2 L (12.9-16.9) g/dL Hct 30.4 L 27.4 L 25.4 L (37.5-50.1) % Plt Count 82 L (140-400) K/mcL Neutrophils # 9.9 H (1.6-8.9) K/mcL BMP 10/06/18 03:08 Sodium 140 Potassium 3.4 L Chloride 102 Carbon Dioxide 32 H BUN 12 Creatinine 0.76 Glucose 113 H Calcium 7.9 L - ABG Interpretation ABG results: PT/INR, D-dimer PT 20.2 Seconds (9.4-12.1) H 10/06/18 03:08 - Impressions Impressions Echocardiogram 10/05/18 02:41 Impressions: LVEF 65%. Indeterminate diastolic function. Normal right ventricular structure and function. Mild-moderate aortic regurgitation. Mitral valve leaflets are not optimally visualized. The posterior leaflet may prolapse with a ruptured chordae. Moderate to severe, eccentric mitral regurgitation. Moderate tricuspid regurgitation. Mild pulmonic regurgitation. Severe pulmonary hypertension. A device lead was visualized in the right atrium and right ventricle. No prior echo for comparison. Left Ventricular Wall Motion: Rest Echo Findings All wall segments showed normal motion. Findings: Study Quality * Technically adequate exam. ECG Findings * Atrial fibrillation. Left Ventricle * LVEF 65%. * Normal LV chamber size, wall thickness. * Indeterminate diastolic function. Right Ventricle * Normal right ventricular structure and function. Left Atrium * Severely dilated left atrium. Right Atrium * Mildly dilated right atrium. Aortic Valve * Trileaflet aortic valve. * No aortic stenosis. * Mild-moderate aortic regurgitation. Mitral Valve * Mitral valve leaflets are not optimally visualized. * Moderate to severe, eccentric mitral regurgitation. * No mitral stenosis. Tricuspid Valve * Tricuspid valve not well visualized. * Moderate tricuspid regurgitation. * Estimated RA pressure is 8 mmHg. * Estimated RVSP is 70 mmHg. * Severe pulmonary hypertension. Pulmonic Valve * Pulmonic valve is not well visualized. * No pulmonic stenosis. * Mild pulmonic regurgitation. Pulmonary Artery * Normal visualized portions of the main pulmonary artery. Aorta * Normally sized aortic root. Pericardium * There is no pericardial effusion present. Device lead * A device lead was visualized in the right atrium and right ventricle. IVC * The IVC is dilated. * > 50% respiratory change Interatrial Septum * No evidence of PFO by color Doppler. Consult Discharge Plan - Plan Referrals: Jyoti Greenfield CNP [Primary Care Provider] - (2) Atrial fibrillation Qualifiers: Atrial fibrillation type: chronic Qualified Code(s): I48.2 - Chronic atrial fibrillation (3) CHF (congestive heart failure) Qualifiers: Heart failure type: unspecified Heart failure chronicity: chronic Qualified Code(s): I50.9 - Heart failure, unspecified (4) HTN (hypertension) Qualifiers: Hypertension type: essential hypertension Qualified Code(s): I10 - Essential (primary) hypertension (6) Leukocytosis Qualifiers: Leukocytosis type: unspecified Qualified Code(s): D72.829 - Elevated white blood cell count, unspecified
[2018-10-06] MEDS: hydrOXYzine pamoate 25 MG CAPSULE PO SCH (21:03)
[2018-10-07] MEDS: Pantoprazole 40 MG VIAL IVP SCH ×2 (05:35→17:11)
[2018-10-07] MEDS: Furosemide 20 MG TABLET PO SCH ×2 (07:51→14:30)
[2018-10-07] MEDS: Metoprolol XL (24 HR) Succ 50 MG TAB.ER.24H PO SCH (07:52)
[2018-10-07 08:10] LABS: Hematocrit 36.6 % (37.5-50.1); Mean Corpuscular Hemoglobin 25.4 pg (28.0-33.3); Mean Platelet Volume 12.2 fL (9.4-12.4); Red Cell Distribution Width 19.3 % (11.5-14.5)
[2018-10-07 08:11] LABS: Hemoglobin 9.9 g/dL (12.9-16.9); Mean Corpuscular Volume 93.8 fL (83.0-100.0); Nucleated Red Blood Cells 0.3 /100 WBC (0); Platelet Count 77 K/mcL (140-400)
[2018-10-07 08:31] LABS: BUN/Creatinine Ratio 13 (6-26); Blood Urea Nitrogen 9 mg/dL (8-23); Calcium 8.2 mg/dL (8.6-10.3); Carbon Dioxide 31 mEq/L (23-29); Chloride 102 mEq/L (98-107); Glucose 102 mg/dL (70-105); Osmolality,Calculated 293 (280-300); Potassium 3.8 mEq/L (3.5-5.1); Sodium 142 mEq/L (136-145); eGFR For African Americans > 60 (> 60); eGFR For Non-African Americans > 60 (> 60)
[2018-10-07 08:49] LABS: Lymphocytes # 0.8 K/mcL (0.6-4.6); Monocytes # 0.6 K/mcL (0.0-1.3); Neutrophils # 12.6 K/mcL (1.6-8.9); Platelet Estimate Decreased (Normal)
--- NOTE | 2018-10-07 13:23 | Event Note ---
Date of Encounter: 10/07/18 Time of Encounter: 13:22 patient with altered mental status after receiving ativan related to aggitation; unable to complete bowel prep; will wait until mental status improves prior to scopes;
--- NOTE | 2018-10-07 13:39 | Consult Note ---
Date of Encounter: 10/07/18 Time of Encounter: 13:35 Assessment & Recommendation (1) Delirium Current visit: Yes Status: Acute Assessment & Recommendation: Client appears to be having periods of delirium, particularly at night, which is common in hospitalized elderly patients. Given Ativan last night which can be a calming medication but can also have a paradoxical effect in delirium and cause increased agitation. If he becomes confused/agitated again would recommend using an antipsychotic like Haldol in place of benzodiazepines. Given his age would start with a low dose (2mg at a time). Can titrate up based on mukul ability. Can give every 4-6 hours as needed. If used IV would recommend keeping him on telemetry to insure no QTc prolongation/arrhythmias. Call if any questions. History of Present Illness Requesting Physician: Ji Camilo MD Reason for consult: agitation History of present illness: Mr. Hummel is a 87 year old male with multiple medical problems who was admitted for symptoms of a GI bleed. Appears to have some sundowning at night as he has been agitated, combative, and confused at times. On eval today he is pleasant and alert. Does not always answer questions appropriately but his stories are organized and linear. No jyoti confusion at this time. However, he is clearly having episodes of delirium which is not uncommon in an elderly patient in the hospital with active medical issues. Given Ativan overnight with some benefit. However, would probably benefit more from an antipsychotic if he becomes agitated again. Takes Celexa at home but otherwise no real mental health history of speak of. CC: Ji Camilo MD Past Med Surg Social Fam HX - Past Medical History Medical history: atrial fibrillation, CHF, GI bleed, hypertension, thyroid disease - Past Psychiatric History Psychiatric history: Reports: no psych history Family psychiatric history: Unknown Family History of Suicide: Unknown - Past Surgical History Surgical History: pacemaker/AICD - Social History Smoking Status: Former smoker Smokeless Tobacco Status: No Alcohol use: none Drug use: none - Family History Father Race: Family Member Ethnicity: Non- Living Status: Age at : 80 Cause of : Alcoholism Hx Family Psychosocial Disorders: Yes (Alcoholism) Mother Race: Family Member Ethnicity: Non- Living Status: Age at : 75 Cause of : Alzheimer's Hx Family Cancer: Yes (Colon) Hx Family Neurologic Disorders: Yes (Alzheimer's) Brother Race: Family Member Ethnicity: Non- Living Status: Age at : 40 Cause of : Alcoholism Hx Family Psychosocial Disorders: Yes (Alcoholism) Sister Race: Family Member Ethnicity: Non- Living Status: Age at : 84 Cause of : Alzheimer's Hx Family Neurologic Disorders: Yes (Alzheimer's) Medications & Allergies Citalopram Hydrobromide [Citalopram HBr] 40 mg PO DAILY 10/05/18 [History] Furosemide [Lasix] 20 mg PO BID 10/05/18 [History] Levothyroxine [Synthroid] 125 mcg PO DAILY 10/05/18 [History] Lisinopril [Zestril] 10 mg PO DAILY 10/05/18 [History] Loperamide HCl [Anti-Diarrheal] 1 tab PO Q6HR PRN 10/05/18 [History] Metoprolol Succinate [Toprol Xl] 75 mg PO DAILY 10/05/18 [History] Potassium Chloride [K-Tab ER] 20 meq PO DAILY 10/05/18 [History] Rivaroxaban [Xarelto] 20 mg PO DAILY 10/05/18 [History] Tamsulosin HCl [Flomax] 0.4 mg PO DAILY 10/05/18 [History] hydrOXYzine HCl [Hydroxyzine HCl] 50 mg PO HS 10/05/18 [History] Allergy/AdvReac Type Severity Reaction Status Date / Time No Known Allergies Allergy Verified 05/26/17 11:38 Review of Systems Constitutional: Reports: weakness Eyes: Denies: eye pain, vision change Ears, Nose, Throat: Denies: ear pain, throat pain, dental pain, hearing loss, congestion Cardiovascular: Denies: chest pain, palpitations, dyspnea on exertion Respiratory: Denies: cough, dyspnea, wheezes Gastrointestinal: Reports: melena Genitourinary male: Denies: urgency, dysuria, frequency, genital lesions Musculoskeletal: Denies: joint swelling, joint pain Integumentary: Denies: rash, lesions, pruritus Neurological: Denies: headache, weakness, numbness, memory loss Endocrine: Denies: fatigue, heat or cold intolerance Hematologic/Lymphatic: Denies: easy bruising, lymphadenopathy Allergic/Immunologic: Denies: urticaria, itchy eyes Psychiatry Exam - Constitutional Vitals: Temp Pulse Resp BP Pulse Ox 97.3 F L 96 20 138/83 98 10/07/18 11:07 10/07/18 11:07 10/07/18 11:07 10/07/18 11:07 10/07/18 11:07 General appearance: age & developmentally appropriate, well-groomed, well- nourished - Musculoskeletal Station: relaxed Strength & Tone: normal for patient - Psychiatric Patient Orientation: Yes Person, Yes Place, Yes Circumstance Level of alertness: Alert Behavior: calm, cooperative Psychomotor activity: Normal Eye Contact: Maintains Eye Contact Mood Description: Euthymic/stable Affect description: congruent with mood Speech Volume: Normal Speech pattern: normal rate, normal rhythm, normal tone, fluent, spontaneous Language & Vocabulary: consistent with education Thought Process: Goal Oriented, Circumstantial, Tangential Thought Content: No Suicidal ideation, No Homicidal ideation, No Overt delusions Perceptual Disturbances: No Auditory hallucinations, No Visual hallucinations Attention Span Ability: Capable of Focused Attention Memory Description: Immediate Intact, Recent Impaired, Remote Intact Patient Reliability: Reliable Historian Fund of knowledge: Yes abstraction ability, Yes aware of current events Intelligence Estimate: Average Judgment: Fair Insight: Partial Results - Labs Labs: Laboratory Last Values WBC 14.0 K/mcL (4.3-11.1) H 10/07/18 08:01 RBC 3.90 M/mcL (4.19-5.50) L 10/07/18 08:01 Hgb 9.9 g/dL (12.9-16.9) L D 10/07/18 08:01 Hct 36.6 % (37.5-50.1) L 10/07/18 08:01 MCV 93.8 fL (83.0-100.0) D 10/07/18 08:01 MCH 25.4 pg (28.0-33.3) L 10/07/18 08:01 MCHC 27.0 g/dL (31.6-35.5) L 10/07/18 08:01 RDW 19.3 % (11.5-14.5) H 10/07/18 08:01 Plt Count 77 K/mcL (140-400) L 10/07/18 08:01 MPV 12.2 fL (9.4-12.4) 10/07/18 08:01 Immature Gran % 0.7 % (0-4) 10/06/18 03:08 Seg Neutrophils % 90.0 % 10/07/18 08:01 Lymphocytes % 6.0 % 10/07/18 08:01 Monocytes % 4.0 % 10/07/18 08:01 Eosinophils % 0.4 % 10/06/18 03:08 Basophils % 0.1 % 10/06/18 03:08 Neutrophils # 12.6 K/mcL (1.6-8.9) H 10/07/18 08:01 Lymphocytes # 0.8 K/mcL (0.6-4.6) 10/07/18 08:01 Monocytes # 0.6 K/mcL (0.0-1.3) 10/07/18 08:01 Eosinophils # 0.1 K/mcL (0.0-0.6) 10/06/18 03:08 Basophils # 0.0 K/mcL (0.0-0.2) 10/06/18 03:08 Nucleated RBCs/100 WBC 0.3 /100 WBC (0) H 10/07/18 08:01 Platelet Estimate Decreased (Normal) L 10/07/18 08:01 Polychromasia 1+ (Not Present) A 10/06/18 03:08 Hypochromasia Present (Not Present) A 10/06/18 03:08 Anisocytosis 1+ (Not Present) A 10/06/18 03:08 PT 20.2 Seconds (9.4-12.1) H 10/06/18 03:08 INR 1.8 10/06/18 03:08 APTT 31.6 Seconds (26.0-36.0) 10/05/18 10:54 Sodium 142 mEq/L (136-145) 10/07/18 08:01 Potassium 3.8 mEq/L (3.5-5.1) 10/07/18 08:01 Chloride 102 mEq/L (98-107) 10/07/18 08:01 Carbon Dioxide 31 mEq/L (23-29) H 10/07/18 08:01 BUN 9 mg/dL (8-23) 10/07/18 08:01 Creatinine 0.70 mg/dL (0.70-1.30) 10/07/18 08:01 Est GFR ( Amer) > 60 (> 60) 10/07/18 08:01 Est GFR (Non-Af Amer) > 60 (> 60) 10/07/18 08:01 BUN/Creatinine Ratio 13 (6-26) 10/07/18 08:01 Glucose 102 mg/dL (70-105) 10/07/18 08:01 POC Glucose 91 mg/dL (70-99) 10/07/18 05:31 Calculated Osmolality 293 (280-300) 10/07/18 08:01 Calcium 8.2 mg/dL (8.6-10.3) L 10/07/18 08:01 Magnesium 2.2 mg/dL (1.6-2.6) 10/05/18 02:08 Iron 149 mcg/dL (65-175) 10/05/18 02:08 % Saturation 39 % (20-55) 10/05/18 02:08 Transferrin 275 mg/dL (203-362) 10/05/18 02:08 Total Bilirubin 3.3 mg/dL (0.3-1.0) H 10/05/18 02:08 AST 47 Units/L (13-39) H 10/05/18 02:08 ALT 90 Units/L (7-52) H 10/05/18 02:08 Alkaline Phosphatase 70 Units/L (34-104) 10/05/18 02:08 Serum Total Protein 4.7 g/dL (6.4-8.9) L 10/05/18 02:08 Albumin 3.1 g/dL (3.5-5.7) L 10/05/18 02:08 Globulin 1.6 g/dL (2.4-3.5) L 10/05/18 02:08 Albumin/Globulin Ratio 1.9 (1.1-2.2) 10/05/18 02:08 Triglycerides 57 mg/dL (< 150) 10/05/18 02:08 Cholesterol 48 mg/dL (< 200) 10/05/18 02:08 LDL Cholesterol, Calc 22 mg/dL (0-99) 10/05/18 02:08 VLDL Cholesterol, Calc 11 mg/dL (< 31) 10/05/18 02:08 HDL Cholesterol 15 mg/dL (40-59) L 10/05/18 02:08 Cholesterol/HDL Ratio 3.2 (0-4.9) 10/05/18 02:08 TSH 0.111 mcIU/mL (0.340-5.600) L 10/05/18 02:08 Free T4 1.43 ng/dl (0.70-2.00) 10/05/18 02:08 Urine Color Dark Yellow (Yellow) 10/05/18 11:45 Urine Clarity Clear (Clear) 10/05/18 11:45 Urine pH 5.5 pH Units (5.0-8.0) 10/05/18 11:45 Ur Specific [place] 1.024 (1.010-1.025) 10/05/18 11:45 Urine Protein Trace mg/dL (Neg-Trace) 10/05/18 11:45 Urine Glucose (UA) Normal mg/dL (Normal) 10/05/18 11:45 Urine Ketones 15 mg/dL (Negative) H 10/05/18 11:45 Urine Blood Negative (Negative) 10/05/18 11:45 Urine Nitrite Negative (Negative) 10/05/18 11:45 Urine Bilirubin Small (Negative) H 10/05/18 11:45 Urine Urobilinogen 4.0 mg/dL (Normal) H 10/05/18 11:45 Ur Leukocyte Esterase Small (Negative) H 10/05/18 11:45 Urine Microscopic RBC 0-3 per hpf (0-3) 10/05/18 11:45 Urine Microscopic WBC 0-3 per hpf (0-3) 10/05/18 11:45 Ur Squamous Epith Cells Moderate per lpf (None-Few) H 10/05/18 11:45 Urine Bacteria None Seen per hpf (None-Few) 10/05/18 11:45 Hyaline Casts None Seen per lpf (None-Few) 10/05/18 11:45 Blood Type O POSITIVE 10/06/18 09:30 Antibody Screen NEGATIVE 10/06/18 09:30 Crossmatch See Detail 10/06/18 09:30 - Impressions Impressions Head CT 10/07/18 09:33 IMPRESSION: Atrophy and mild small vessel ischemic disease. D/ / Jordan Allen MD / Jordan Allen MD Interpreting Provider: Jordan Allen MD Chest X-Ray 10/07/18 11:50 IMPRESSION: Retrocardiac opacity as well as in increasing right perihilar opacity, suspicious for pneumonia. Recommend follow-up to ensure complete resolution. D/ / Inga Camilo MD / Inga Camilo MD Interpreting Provider: Inga Camilo MD Consult Discharge Plan - Plan Referrals: Jyoti Greenfield, INTEGRATION DIRECTOR [Primary Care Provider] -
[2018-10-07] MEDS: cefTRIAXone 1,000 MG in 0.9 % Sodium Chloride Mini Bag 100 ML IVPB SCH (14:26)
[2018-10-07] MEDS: Azithromycin 500 MG in D5% in Water 250 ML IVPB SCH (14:27)
[2018-10-07] MEDS ORDERED: Haloperidol Lactate 5 MG/ML VIAL IVP PRN (16:39)
--- NOTE | 2018-10-07 17:27 | Internal Med Progress Note ---
Hospitalist Progress Note - Encounter Date of Encounter: 10/07/18 Time of Encounter: 17:24 - Subjective Interval History: Patient was seen and examined at bedside today. Patient is alert and oriented.. Patient denied any acute issues and concerns. Patient was agitated yesterday and was given Ativan 1 mg. After receiving at Ativan patient was somnolent early this morning. CT head was done which was negative for any acute pathology. Chest x-ray was done today. Patient had intermittent agitation and delirium yesterday. Patient was evaluated by psychiatrist today. Recommend Haldol 2 mg IV push as needed for delirium and agitation. We will follow psychiatry recommendation. - Exam Vitals: Temp Pulse Resp BP Pulse Ox 98.0 F 109 19 139/75 94 10/07/18 15:05 10/07/18 15:05 10/07/18 15:05 10/07/18 15:05 10/07/18 15:05 Exam: General: A & O 3, In no acute distress. Somnolent HENNT: PERRLA. Head atraumatic and makes supple CVS S1 and S2 regular, no murmur RS: Patient has rhonchi on the right side and some rales n the base of the left lung. Abdomen: Soft and nontender. Bowel sounds normal 4 Extremities: No cyanosis, clubbing, and edema Neurology: Cranial 2 through 12 normal. Motor strength 5/5 bilaterally. Sensation intact - Assessment and Plan (1) Melena Current Visit: Yes Status: Acute Assessment and Plan: Patient was admitted for melena. Patient is currently on Protonix. Hemoglobin today is 9.9. Patient received 2 unit of packed RBC yesterday. Plan was to do EGD and colonoscopy drip. However due to delirium and agitation patient did not finish his bowel preperation yesterday so scope was not done today. We will try to get the bowel depression today (2) Pneumonia Current Visit: Yes Status: Suspected Assessment and Plan: The chest x-ray done couple of days ago which showed atelectasis. Patient's physical exam today showed rales and rhonchi on the right side. Chest x-ray repeated today which shows developing pneumonia in the right perihilar region. At this point pneumonia is suspected due to elevated white count however trended down since his admission. We will start patient on antibiotic. Will monitor response. We will continue to monitor. (3) Atrial fibrillation Current Visit: Yes Status: Chronic Assessment and Plan: Hx of chronic Atrial fibrillation on Xarelto. Recommendation from Pharmacy is to be off Xarelto for 24 hours prior to procedure. Will start Xarelto after procedure (4) CHF (congestive heart failure) Current Visit: Yes Status: Chronic Assessment and Plan: Echocardiogram ordered. Mild diastolic dysfunction. Ejection fraction was 65%. We will continue to monitor I's and O's and daily weight. (5) HTN (hypertension) Current Visit: Yes Status: Chronic Assessment and Plan: Continue pts. lisinopril and Toprol-XL (6) Thyroid disease Current Visit: Yes Status: Chronic Assessment and Plan: Continue pts. Synthroid. Cardiac monitoring. (7) Leukocytosis Current Visit: Yes Status: Acute Assessment and Plan: Stable. Patient was placed on antibiotic today. We will continue to monitor. (8) Hypocalcemia Current Visit: Yes Status: Acute Assessment and Plan: Continue calcium carbonate ordered. Monitor f/u labs. Cardiac monitoring. (9) DVT prophylaxis Current Visit: Yes Status: Acute Assessment and Plan: Bilateral SCDs on LEs for DVT prophylaxis d/t current melena and drop in Hgb. - Time Spent with Patient Total time spent is greater than 50% in coordination of care (as documented) at patient's floor/unit and/or counseling patient: Internal Medicine: Result - Labs CBC & Chem 7: 10/07/18 08:01 10/07/18 08:01 Labs: Short CBC 10/07/18 Range/Units 08:01 WBC 14.0 H (4.3-11.1) K/mcL Hgb 9.9 L D (12.9-16.9) g/dL Hct 36.6 L (37.5-50.1) % Plt Count 77 L (140-400) K/mcL Neutrophils # 12.6 H (1.6-8.9) K/mcL BMP 10/07/18 08:01 Sodium 142 Potassium 3.8 Chloride 102 Carbon Dioxide 31 H BUN 9 Creatinine 0.70 Glucose 102 Calcium 8.2 L - ABG Interpretation ABG results: PT/INR, D-dimer PT 20.2 Seconds (9.4-12.1) H 10/06/18 03:08 - Impressions Impressions Head CT 10/07/18 09:33 IMPRESSION: Atrophy and mild small vessel ischemic disease. D/ / Jordan Allen MD / Jordan Allen MD Interpreting Provider: Jordan Allen MD Chest X-Ray 10/07/18 11:50 IMPRESSION: Retrocardiac opacity as well as in increasing right perihilar opacity, suspicious for pneumonia. Recommend follow-up to ensure complete resolution. D/ / Inga Camilo MD / Inga Camilo MD Interpreting Provider: Inga Camilo MD Consult Discharge Plan - Plan Referrals: Jyoti Greenfield RANGE EXAMINER [Primary Care Provider] - (2) Pneumonia Qualifiers: Pneumonia type: due to unspecified organism Laterality: right Lung location: middle lobe of lung Qualified Code(s): J18.1 - Lobar pneumonia, unspecified organism (3) Atrial fibrillation Qualifiers: Atrial fibrillation type: chronic Qualified Code(s): I48.2 - Chronic atrial fibrillation (4) CHF (congestive heart failure) Qualifiers: Heart failure type: unspecified Heart failure chronicity: chronic Qualified Code(s): I50.9 - Heart failure, unspecified (5) HTN (hypertension) Qualifiers: Hypertension type: essential hypertension Qualified Code(s): I10 - Essential (primary) hypertension (7) Leukocytosis Qualifiers: Leukocytosis type: unspecified Qualified Code(s): D72.829 - Elevated white blood cell count, unspecified
[2018-10-07] MEDS ORDERED: *HR* LORazepam 2 MG/ML VIAL IVP ONE (18:34)
[2018-10-07] MEDS: hydrOXYzine pamoate 25 MG CAPSULE PO SCH (21:06)
[2018-10-07] MEDS: Nystatin POWDER 30 GM BOTTLE TP SCH (21:08)
[2018-10-07 22:40] LABS: Bilirubin,Urine Small (Negative); Blood,Urine Negative (Negative); Clarity,Urine Clear (Clear); Color,Urine Dark Yellow (Yellow); Glucose,Urine (UA) Normal (Normal); Ketones,Urine Negative (Negative); Leukocyte Esterase,Urine Negative (Negative); Nitrite,Urine Negative (Negative); PH,Urine 5.5 pH Units (5.0-8.0); Protein,Urine Negative (Neg-Trace); Specific Gravity,Urine 1.014 (1.010-1.025); Urobilinogen,Urine >=8.0 mg/dL (Normal)
[2018-10-08] MEDS: Pantoprazole 40 MG VIAL IVP SCH ×2 (05:21→17:52)
[2018-10-08 06:34] LABS: Basophils % 0.1 %; Eosinophils # 0.2 K/mcL (0.0-0.6); Eosinophils % 1.4 %; Hematocrit 32.9 % (37.5-50.1); Hemoglobin 9.4 g/dL (12.9-16.9); Lymphocytes # 1.2 K/mcL (0.6-4.6); Mean Corpuscular HGB Conc 28.6 g/dL (31.6-35.5); Mean Corpuscular Hemoglobin 24.8 pg (28.0-33.3); Monocytes # 1.7 K/mcL (0.0-1.3); Monocytes % 14.5 %; Nucleated Red Blood Cells 0.2 /100 WBC (0); Red Blood Count 3.79 M/mcL (4.19-5.50); Red Cell Distribution Width 19.1 % (11.5-14.5); White Blood Count 11.7 K/mcL (4.3-11.1)
[2018-10-08 06:35] LABS: Mean Corpuscular Volume 86.8 fL (83.0-100.0); Neutrophils # 8.5 K/mcL (1.6-8.9); Platelet Count 70 K/mcL (140-400)
[2018-10-08 06:53] LABS: BUN/Creatinine Ratio 11 (6-26); Blood Urea Nitrogen 7 mg/dL (8-23); Calcium 8.1 mg/dL (8.6-10.3); Carbon Dioxide 33 mEq/L (23-29); Chloride 99 mEq/L (98-107); Glucose 94 mg/dL (70-105); Osmolality,Calculated 280 (280-300); Potassium 3.6 mEq/L (3.5-5.1); Sodium 136 mEq/L (136-145); eGFR For African Americans > 60 (> 60); eGFR For Non-African Americans > 60 (> 60)
[2018-10-08] MEDS: Metoprolol XL (24 HR) Succ 50 MG TAB.ER.24H PO SCH (08:02)
[2018-10-08] MEDS: Furosemide 20 MG TABLET PO SCH ×2 (08:03→17:52)
[2018-10-08] MEDS: cefTRIAXone 1,000 MG in 0.9 % Sodium Chloride Mini Bag 100 ML IVPB SCH (08:03)
[2018-10-08] MEDS: Nystatin POWDER 30 GM BOTTLE TP SCH ×2 (08:03→22:45)
--- NOTE | 2018-10-08 10:58 | Internal Med Progress Note ---
Hospitalist Progress Note - Encounter Date of Encounter: 10/08/18 Time of Encounter: 10:56 - Subjective Interval History: Patient was seen and examined at bedside. Patient is doing much better mentation perspective. Patient is alert and oriented 3. Patient denies any acute issues and concerns. Patient denies any breathing difficulty. Patient was placed on antibiotic yesterday for concerning pneumonia. Since WBC count is trending down. We will continue to monitor. Encouraged to use intensive spirometry. Anticipate discharge tomorrow after social sciences lecturer consult will be after tomorrow. Dr. Manrique surgery and plan is to do EGD and colonoscopy as an outpatient. - Exam Vitals: Temp Pulse Resp BP Pulse Ox 97.8 F 88 19 102/63 96 10/08/18 10:37 10/08/18 10:37 10/08/18 10:37 10/08/18 10:37 10/08/18 10:37 Exam: General: A & O 3, In no acute distress. HENNT: PERRLA. Head atraumatic and makes supple CVS S1 and S2 regular, no murmur RS: Patient has rhonchi on the right side and some rales on the base of the left lung. Abdomen: Soft and nontender. Bowel sounds normal 4 Extremities: No cyanosis, clubbing, and edema Neurology: Cranial 2 through 12 normal. Motor strength 5/5 bilaterally. Sensation intact - Assessment and Plan (1) Pneumonia Current Visit: Yes Status: Suspected Assessment and Plan: And is improving on Rocephin and azithromycin. White count is trending down. Encouraged to use IS.. (2) Leukocytosis Current Visit: Yes Status: Acute Assessment and Plan: Stable. Patient was placed on antibiotic today. We will continue to monitor. (3) Melena Current Visit: Yes Status: Acute Assessment and Plan: Continue Protonix. Hemoglobin stable at 9.4. Zetia and colonoscopy as an outpatient for surgery. (4) Atrial fibrillation Current Visit: Yes Status: Chronic Assessment and Plan: Chronic Atrial fibrillation on Xarelto. Will consider starting Xarelto discharge if not actively bleeding. (5) CHF (congestive heart failure) Current Visit: Yes Status: Chronic Assessment and Plan: Echocardiogram ordered. Mild diastolic dysfunction. Ejection fraction was 65%. We will continue to monitor I's and O's and daily weight. (6) HTN (hypertension) Current Visit: Yes Status: Chronic Assessment and Plan: Continue pts. lisinopril and Toprol-XL (7) Thyroid disease Current Visit: Yes Status: Chronic Assessment and Plan: Continue pts. Synthroid. Cardiac monitoring. (8) Hypocalcemia Current Visit: Yes Status: Acute Assessment and Plan: Continue calcium carbonate ordered. Monitor f/u labs. Cardiac monitoring. (9) DVT prophylaxis Current Visit: Yes Status: Acute Assessment and Plan: Bilateral SCDs on LEs for DVT prophylaxis d/t current melena and drop in Hgb. - Time Spent with Patient Total time spent is greater than 50% in coordination of care (as documented) at patient's floor/unit and/or counseling patient: 25 - 35 minutes Plan of Care Discussed with: patient Internal Medicine: Result - Labs CBC & Chem 7: 10/08/18 06:00 10/08/18 06:00 Labs: Short CBC 10/08/18 Range/Units 06:00 WBC 11.7 H (4.3-11.1) K/mcL Hgb 9.4 L (12.9-16.9) g/dL Hct 32.9 L (37.5-50.1) % Plt Count 70 L (140-400) K/mcL Neutrophils # 8.5 (1.6-8.9) K/mcL BMP 10/08/18 06:00 Sodium 136 Potassium 3.6 Chloride 99 Carbon Dioxide 33 H BUN 7 L Creatinine 0.63 L Glucose 94 Calcium 8.1 L Urine 10/07/18 Range/Units 22:20 Urine Color Dark Yellow (Yellow) Urine Clarity Clear (Clear) Urine pH 5.5 (5.0-8.0) pH Units Ur Specific Elmo 1.014 (1.010-1.025) Urine Protein Negative (Neg-Trace) mg/dL Urine Glucose (UA) Normal (Normal) mg/dL - ABG Interpretation ABG results: PT/INR, D-dimer PT 20.2 Seconds (9.4-12.1) H 10/06/18 03:08 - Impressions Impressions Chest X-Ray 10/07/18 11:50 IMPRESSION: Retrocardiac opacity as well as in increasing right perihilar opacity, suspicious for pneumonia. Recommend follow-up to ensure complete resolution. D/ / Inga Camilo MD / Inga Camilo MD Interpreting Provider: Inga Camilo MD Consult Discharge Plan - Plan Referrals: Jyoti Greenfield CNP [Primary Care Provider] - (1) Pneumonia Qualifiers: Pneumonia type: due to unspecified organism Laterality: right Lung location: middle lobe of lung Qualified Code(s): J18.1 - Lobar pneumonia, unspecified organism (2) Leukocytosis Qualifiers: Leukocytosis type: unspecified Qualified Code(s): D72.829 - Elevated white blood cell count, unspecified (4) Atrial fibrillation Qualifiers: Atrial fibrillation type: chronic Qualified Code(s): I48.2 - Chronic atrial fibrillation (5) CHF (congestive heart failure) Qualifiers: Heart failure type: unspecified Heart failure chronicity: chronic Qualified Code(s): I50.9 - Heart failure, unspecified (6) HTN (hypertension) Qualifiers: Hypertension type: essential hypertension Qualified Code(s): I10 - Essential (primary) hypertension
[2018-10-08] MEDS: Azithromycin 500 MG in D5% in Water 250 ML IVPB SCH (15:43)
[2018-10-08] MEDS: hydrOXYzine pamoate 25 MG CAPSULE PO SCH (20:03)
[2018-10-09 04:15] LABS: Basophils % 0.1 %; Immature Granulocytes % 0.4 % (0-4); Red Cell Distribution Width 19.7 % (11.5-14.5)
[2018-10-09 04:16] LABS: Eosinophils # 0.1 K/mcL (0.0-0.6); Hematocrit 33.2 % (37.5-50.1); Hemoglobin 9.5 g/dL (12.9-16.9); Lymphocytes # 1.7 K/mcL (0.6-4.6); Lymphocytes % 12.1 %; Mean Corpuscular HGB Conc 28.6 g/dL (31.6-35.5); Mean Corpuscular Hemoglobin 25.2 pg (28.0-33.3); Mean Corpuscular Volume 88.1 fL (83.0-100.0); Monocytes # 1.9 K/mcL (0.0-1.3); Monocytes % 13.9 %; Neutrophils # 9.9 K/mcL (1.6-8.9); Nucleated Red Blood Cells 0.1 /100 WBC (0); Red Blood Count 3.77 M/mcL (4.19-5.50); Segmented Neutrophils % 72.5 %; White Blood Count 13.7 K/mcL (4.3-11.1)
[2018-10-09 04:17] LABS: Platelet Count 72 K/mcL (140-400)
[2018-10-09 04:34] LABS: BUN/Creatinine Ratio 11 (6-26); Blood Urea Nitrogen 9 mg/dL (8-23); Calcium 8.1 mg/dL (8.6-10.3); Carbon Dioxide 34 mEq/L (23-29); Chloride 100 mEq/L (98-107); Glucose 119 mg/dL (70-105); Osmolality,Calculated 288 (280-300); Potassium 4.1 mEq/L (3.5-5.1); Sodium 139 mEq/L (136-145); eGFR For African Americans > 60 (> 60); eGFR For Non-African Americans > 60 (> 60)
[2018-10-09 04:37] LABS: Hypochromasia Present (Not Present); Platelet Estimate Marked Decrease (Normal)
[2018-10-09] MEDS: Pantoprazole 40 MG VIAL IVP SCH (06:11)
[2018-10-09] MEDS: Furosemide 20 MG TABLET PO SCH ×2 (07:33→15:53)
[2018-10-09] MEDS: Metoprolol XL (24 HR) Succ 50 MG TAB.ER.24H PO SCH (07:34)
[2018-10-09] MEDS: cefTRIAXone 1,000 MG in 0.9 % Sodium Chloride Mini Bag 100 ML IVPB SCH (07:34)
[2018-10-09] MEDS: Nystatin POWDER 30 GM BOTTLE TP SCH ×2 (07:35→21:50)
[2018-10-09] MEDS ORDERED: Azithromycin 500 MG in D5% in Water 250 ML IVPB SCH (11:00)
--- NOTE | 2018-10-09 12:31 | Internal Med Progress Note ---
Hospitalist Progress Note - Encounter Date of Encounter: 10/09/18 Time of Encounter: 12:29 - Subjective Interval History: Patient was seen and examined at bedside today. Patient denies any acute issues and concerns. Patient is alert and oriented today and much better mentation perspective and admission. Patient currently getting Rocephin and azithromycin for possible pneumonia. We will get CT of the chest today. - Exam Vitals: Temp Pulse Resp BP Pulse Ox 97.6 F 91 18 135/82 98 10/09/18 10:48 10/09/18 10:48 10/09/18 10:48 10/09/18 10:48 10/09/18 10:48 Exam: General: A & O 3, In no acute distress. HENNT: PERRLA. Head atraumatic and makes supple CVS S1 and S2 regular, no murmur RS: Patient has rhonchi on the right side and some rales on the base of the left lung. Abdomen: Soft and nontender. Bowel sounds normal 4 Extremities: No cyanosis, clubbing, and edema Neurology: Cranial 2 through 12 normal. Motor strength 5/5 bilaterally. Sensat ion intact - Assessment and Plan (1) Pneumonia Current Visit: Yes Status: Suspected Assessment and Plan: Patient is improving on Rocephin and azithromycin. Encouraged to use IS. CT chest showed left lower lobe pneumonia. We will discontinue Rocephin today and will add Unasyn for better anaerobic coverage. We will continue Unasyn and Azithromycin. (2) Leukocytosis Current Visit: Yes Status: Acute Assessment and Plan: Stable. Patient was placed on antibiotics. We will continue to monitor. (3) Melena Current Visit: Yes Status: Acute Assessment and Plan: Continue Protonix. Hemoglobin stable at 9.4. Plan is to do colonoscopy as an outpatient for surgery. (4) Atrial fibrillation Current Visit: Yes Status: Chronic Assessment and Plan: Chronic Atrial fibrillation on Xarelto. Will consider starting Xarelto discharge if not actively bleeding. (5) CHF (congestive heart failure) Current Visit: Yes Status: Chronic Assessment and Plan: Echocardiogram ordered. Mild diastolic dysfunction. Ejection fraction was 65%. We will continue to monitor I's and O's and daily weight. (6) HTN (hypertension) Current Visit: Yes Status: Chronic Assessment and Plan: Continue pts. lisinopril and Toprol-XL (7) Thyroid disease Current Visit: Yes Status: Chronic Assessment and Plan: Continue pts. Synthroid. Cardiac monitoring. (8) Hypocalcemia Current Visit: Yes Status: Acute Assessment and Plan: Continue calcium carbonate ordered. Monitor f/u labs. Cardiac monitoring. (9) DVT prophylaxis Current Visit: Yes Status: Acute Assessment and Plan: Bilateral SCDs on LEs for DVT prophylaxis d/t current melena and drop in Hgb. - Time Spent with Patient Total time spent is greater than 50% in coordination of care (as documented) at patient's floor/unit and/or counseling patient: 25 - 35 minutes Plan of Care Discussed with: family Internal Medicine: Result - Labs CBC & Chem 7: 10/09/18 04:00 10/09/18 04:00 Labs: Short CBC 10/09/18 Range/Units 04:00 WBC 13.7 H (4.3-11.1) K/mcL Hgb 9.5 L (12.9-16.9) g/dL Hct 33.2 L (37.5-50.1) % Plt Count 72 L (140-400) K/mcL Neutrophils # 9.9 H (1.6-8.9) K/mcL BMP 10/09/18 04:00 Sodium 139 Potassium 4.1 Chloride 100 Carbon Dioxide 34 H BUN 9 Creatinine 0.82 Glucose 119 H Calcium 8.1 L - ABG Interpretation ABG results: PT/INR, D-dimer PT 20.2 Seconds (9.4-12.1) H 10/06/18 03:08 - Impressions Impressions Chest CT 10/09/18 09:35 IMPRESSION: Bilateral pleural effusions. Consolidation seen within the left lower lobe may be secondary to pneumonia. Atelectatic changes seen in both the left and right lung bases. D/ / 10/09/2018 10:48:55 Jose Andrade MD / scout Interpreting Provider: Jose Andrade MD Consult Discharge Plan - Plan Referrals: Jyoti Greenfield, RF TEST ENGINEER [Primary Care Provider] - (1) Pneumonia Qualifiers: Pneumonia type: aspiration pneumonia Laterality: left Lung location: lower lobe of lung (2) Leukocytosis Qualifiers: Leukocytosis type: unspecified Qualified Code(s): D72.829 - Elevated white blood cell count, unspecified (4) Atrial fibrillation Qualifiers: Atrial fibrillation type: chronic Qualified Code(s): I48.2 - Chronic atrial fibrillation (5) CHF (congestive heart failure) Qualifiers: Heart failure type: unspecified Heart failure chronicity: chronic Qualified Code(s): I50.9 - Heart failure, unspecified (6) HTN (hypertension) Qualifiers: Hypertension type: essential hypertension Qualified Code(s): I10 - Essential (primary) hypertension
[2018-10-09] MEDS: Ampicillin/Sulbactam 3,000 MG in 0.9 % Sodium Chloride Mini Bag 100 ML IVPB SCH ×3 (13:25→23:56)
[2018-10-09] MEDS: hydrOXYzine pamoate 25 MG CAPSULE PO SCH (21:47)
[2018-10-10 05:34] LABS: Basophils % 0.1 %; Hemoglobin 9.6 g/dL (12.9-16.9); Immature Granulocytes % 0.5 % (0-4)
[2018-10-10 05:36] LABS: Hematocrit 33.5 % (37.5-50.1); Lymphocytes % 7.6 %; Mean Corpuscular HGB Conc 28.7 g/dL (31.6-35.5); Mean Corpuscular Hemoglobin 25.2 pg (28.0-33.3); Mean Corpuscular Volume 87.9 fL (83.0-100.0); Mean Platelet Volume 11.7 fL (9.4-12.4); Monocytes % 13.1 %; Red Blood Count 3.81 M/mcL (4.19-5.50); Red Cell Distribution Width 20.1 % (11.5-14.5); Segmented Neutrophils % 77.7 %
[2018-10-10 05:37] LABS: Eosinophils # 0.1 K/mcL (0.0-0.6); Monocytes # 1.7 K/mcL (0.0-1.3); Neutrophils # 10.1 K/mcL (1.6-8.9)
[2018-10-10 05:39] LABS: Platelet Count 67 K/mcL (140-400)
[2018-10-10 05:45] LABS: BUN/Creatinine Ratio 14 (6-26); Blood Urea Nitrogen 10 mg/dL (8-23); Calcium 8.6 mg/dL (8.6-10.3); Carbon Dioxide 33 mEq/L (23-29); Chloride 98 mEq/L (98-107); Glucose 97 mg/dL (70-105); Osmolality,Calculated 285 (280-300); Potassium 4.1 mEq/L (3.5-5.1); Sodium 138 mEq/L (136-145); eGFR For African Americans > 60 (> 60); eGFR For Non-African Americans > 60 (> 60)
[2018-10-10 06:01] LABS: Anisocytosis 2+ (Not Present); Hypochromasia Present (Not Present); Macrocytosis Present (Not Present); Ovalocytes 1+ (Not Present); Polychromasia 1+ (Not Present)
[2018-10-10 06:02] LABS: Platelet Estimate Decreased (Normal)
[2018-10-10] MEDS: Ampicillin/Sulbactam 3,000 MG in 0.9 % Sodium Chloride Mini Bag 100 ML IVPB SCH (06:12)
[2018-10-10] MEDS ORDERED: Azithromycin 250 MG TABLET PO SCH (09:06)
--- NOTE | 2018-10-10 09:42 | Discharge Summary ---
- NOTES TO OUTPATIENT PROVIDER Notes to Outpatient Provider: Patient was admitted to the hospital with concern of a lip but GI bleed. Initially patient's hemoglobin was low patient was status post 2 unit of PRBC. Patient's INR was high patient received 1 dose of FFP. INR came below 2. Patient subsequently developed pneumonia. Surgery was on consult. Surgery decided to do endoscopy and colonoscopy outpatient due to current pneumonia. Patient was treated with Rocephin and Azithromycin initially. After that Rocephin was discontinued and placed on Unasyn and albuterol. Patient will be discharged on Augmentin for 1 week and azithromycin for 1 more dose. His follow-up with patient outpatient for GI bleed. We will hold patient's Xarelto since he is at high risk of bleeding and due to current GI bleed. Xarelto can be started as an outpatient once patient undergoes scope and GI bleed is ruled out. Orders not resulted at time of discharge: Pending orders 10/04/18 20:20 Fecal Hemoccult [Occult Blood,Stool] [BF] Stat Date of Encounter: 10/10/18 Time of Encounter: 09:38 - Discharge Diagnosis (1) Pneumonia Priority: Primary Status: Suspected Qualifiers: Pneumonia type: aspiration pneumonia Aspiration pneumonia type: unspecified Laterality: left Lung location: lower lobe of lung Qualified Code(s): J69.0 - Pneumonitis due to inhalation of food and vomit (2) Leukocytosis Priority: Secondary Status: Acute Qualifiers: Leukocytosis type: unspecified Qualified Code(s): D72.829 - Elevated white blood cell count, unspecified (3) Melena Priority: Secondary Status: Acute (4) Atrial fibrillation Priority: Secondary Status: Chronic Qualifiers: Atrial fibrillation type: chronic Qualified Code(s): I48.2 - Chronic atrial fibrillation (5) CHF (congestive heart failure) Priority: Secondary Status: Chronic Qualifiers: Heart failure type: unspecified Heart failure chronicity: chronic Qualified Code(s): I50.9 - Heart failure, unspecified (6) HTN (hypertension) Priority: Secondary Status: Chronic Qualifiers: Hypertension type: essential hypertension Qualified Code(s): I10 - Essential (primary) hypertension (7) Thyroid disease Priority: Secondary Status: Chronic (8) Hypocalcemia Priority: Secondary Status: Chronic (9) DVT prophylaxis Priority: Secondary Status: Acute Hospital course: Mr. Hummel is a 87 year old with past medical history of hypertension, CHF, atrial fibrillation presented to the emergency department with complaint of melena and GI bleed. Initially patient's hemoglobin was low patient received t 2 unit of PRBC. Patient's INR was high patient received 1 dose of FFP. INR came below 2. Patient subsequently developed pneumonia. Surgery was on consult. Surgery decided to do endoscopy and colonoscopy outpatient due to current pneumonia. Patient was treated with Rocephin and Azithromycin initially. After that Rocephin was discontinued and placed on Unasyn and albuterol. Patient will be discharged on Augmentin for 1 week and azithromycin for 1 more dose. His follow-up with patient outpatient for GI bleed. We will hold patient's Xarelto since he is at high risk of bleeding and due to current GI bleed. Xarelto can be started as an outpatient once patient undergoes scope and GI bleed is ruled out. Patient is to follow-up with primary care provider and surgery for scope. Discharge discussed with: patient, family, nurse, social work - Time Spent with Patient Total time spent providing and/or coordinating discharge services: 40 Time spent: Greater than 30 minutes - Discharge Medications Prescriptions: New Amoxicillin/Clavulanate [Augmentin] 875 mg PO BIDWM 7 Days #14 tablet Azithromycin 500 mg PO DAILY 1 Days #1 tablet Continued Tamsulosin HCl [Flomax] 0.4 mg PO DAILY Loperamide HCl [Anti-Diarrheal] 1 tab PO Q6HR PRN PRN Reason: Diarrhea Citalopram Hydrobromide [Citalopram HBr] 40 mg PO DAILY Levothyroxine [Synthroid] 125 mcg PO DAILY Lisinopril [Zestril] 10 mg PO DAILY Metoprolol Succinate [Toprol Xl] 75 mg PO DAILY Furosemide [Lasix] 20 mg PO BID hydrOXYzine HCl [Hydroxyzine HCl] 50 mg PO HS Potassium Chloride [K-Tab ER] 20 meq PO DAILY Discontinued Rivaroxaban [Xarelto] 20 mg PO DAILY Home Medications: Citalopram Hydrobromide [Citalopram HBr] 40 mg PO DAILY 10/05/18 [History] Furosemide [Lasix] 20 mg PO BID 10/05/18 [History] Levothyroxine [Synthroid] 125 mcg PO DAILY 10/05/18 [History] Lisinopril [Zestril] 10 mg PO DAILY 10/05/18 [History] Loperamide HCl [Anti-Diarrheal] 1 tab PO Q6HR PRN 10/05/18 [History] Metoprolol Succinate [Toprol Xl] 75 mg PO DAILY 10/05/18 [History] Potassium Chloride [K-Tab ER] 20 meq PO DAILY 10/05/18 [History] Tamsulosin HCl [Flomax] 0.4 mg PO DAILY 10/05/18 [History] hydrOXYzine HCl [Hydroxyzine HCl] 50 mg PO HS 10/05/18 [History] Amoxicillin/Clavulanate [Augmentin] 875 mg PO BIDWM 7 Days #14 tablet 10/10/18 [Rx] Azithromycin 500 mg PO DAILY 1 Days #1 tablet 10/10/18 [Rx] Allergies/Adverse Reactions: Allergy/AdvReac Type Severity Reaction Status Date / Time No Known Allergies Allergy Verified 05/26/17 11:38 Date of admission: 10/06/18 13:57 Primary care physician: MATT Ni Consults: 10/04/18 18:17 Consult to [employer]ra[employer] Finisher [CONS] Routine Reason for SW Consult: Rectal cancer, home O2 ([facility]). Patient had home O2 ordered per qualification 2 months ago which has not arrived. This needs addressed prior to discharge. 10/04/18 20:21 Consult to Surgery [CONS] Routine Consulting Provider: [facility] Reason for Consult: Patient has hx of GI bleeds in past. Now has Hgb of 8.6 on admission. Reports black stools. Discussed pt. w/Dr. Roblero. NPO. Typed and screened and will transfuse if needed. Call Completed: Yes 10/05/18 01:33 Consult to Pastoral Services [CONS] Routine Comment: 10/05/18 01:39 Consult to Occupational Therapy [CONS] Routine Comment: Evaluate, develop and implement POC Reason for Consult: Patient has hx of weakness and falls. Please assess patient for ambulation strength, safety, stability, and possible home assistive/rehabilitation needs. Does patient have active BEDREST order?: No Is patient medically & hemodynamically stable?: Yes Patient assessed for mobility or mobilized this visit?: No Consult to Physical Therapy [CONS] Routine Comment: Evaluate, develop and implement POC Reason for Consult: Patient has hx of weakness and falls. Please assess patient for ambu lation strength, safety, stability, and possible home assistive/rehabilitation needs. Does patient have active BEDREST order?: No Is patient medically & hemodynamically stable?: Yes Patient assessed for mobility or mobilized this visit?: No 10/06/18 18:21 Consult to Psychiatry [CONS] Stat Consulting Provider: Psychiatry Elena Reason consult: Agitation Call Completed: Yes Discharging clinician: Ji Camilo - Constitutional Vitals: Temp Pulse Resp BP Pulse Ox 97.5 F L 86 16 129/78 92 10/10/18 07:13 10/10/18 07:13 10/10/18 07:13 10/10/18 07:13 10/10/18 07:13 General appearance: Present: cooperative, A&O X 3, pleasant, no acute distress, obese, answers questions appropriately Exam: General: A & O 3, In no acute distress. HENNT: PERRLA. Head atraumatic and makes supple CVS S1 and S2 regular, no murmur RS: Patient has minimal rhochi on rt side Abdomen: Soft and nontender. Bowel sounds normal 4 Extremities: No cyanosis, clubbing, and edema Neurology: Cranial 2 through 12 normal. Motor strength 5/5 bilaterally. Sensation intact - Patient Status Disposition: Home, Self-Care Condition: Good Overall status at discharge: patient is progressing back to baseline - Discharge Instructions Follow Up With: Jyoti Greenfield COIN MACHINE COLLECTOR [Primary Care Provider] - - Diet and Activity Activity: increase activity as tolerated Diet: low salt diet
[2018-10-10] MEDS: Furosemide 20 MG TABLET PO SCH (10:23)
[2018-10-10] MEDS: Metoprolol XL (24 HR) Succ 50 MG TAB.ER.24H PO SCH (10:25)
[2018-10-10 11:40] VITALS: BP 127/78
== END 2018-10-10 12:48 | disposition home or self-care (01) | DRG 377 ==
LOC: 2ANU → SUATTDRO 17:10 → 2ANU 10-05 23:26
PROVIDERS: ADMIT Student in an Organized Health Care Education/Training Program; ATTEND Family Medicine